=== PATIENT | male | born 1970 | race African-American/Black ===

== ENCOUNTER 2017-11-25 09:38 | Emergency (ER) | payer MEDICAID ==
[~2017-11-25] VITALS: Ht 175.3 cm; Wt 81.8 kg
[2017-11-25] MEDS ORDERED: CLINDAMYCIN HCL 150 MG CAPSULE PO ONE (10:45)
[2017-11-25] MEDS ORDERED: OxyCODONE HCL/ACETAMINOPHEN 5-325 MG TABLET PO ONE (11:00)
[2017-11-25 11:30] VITALS: BP 136/84
== END 2017-11-25 11:45 | disposition home or self-care (01) ==
LOC: EMS 09:40
DX: K08.89 Other specified disorders of teeth and supporting structures (principal); R22.0 Localized swelling, mass and lump, head; F17.210 Nicotine dependence, cigarettes, uncomplicated
CPT/HCPCS: 99283

== ENCOUNTER 2020-10-31 19:46 | Emergency (ER) | payer MEDICAID ==
[~2020-10-31] VITALS: Ht 177.8 cm; Wt 81.8 kg
[2020-10-31] MEDS ORDERED: KETOROLAC TROMETHAMINE 30 MG/ML VIAL IVP ONE (21:45)
[2020-10-31 21:50] LABS: BASOPHILS % (AUTO) 0.2 % (0.0-2.0); EOSINOPHILS % (AUTO) 0.3 % (1.0-6.0); HEMATOCRIT 39.5 % (41-53); LYMPHOCYTES # (AUTO) 1.4 K/uL (1.0-4.8); LYMPHOCYTES % (AUTO) 10.6 % (22.0-44.0); MEAN CORPUSCULAR HGB CONC 32.9 G/dL (31.0-37.0); MEAN CORPUSCULAR VOLUME 76 fL (80-100); MONOCYTES # (AUTO) 0.9 K/uL (0.1-1.0); MONOCYTES % (AUTO) 6.7 % (2.0-9.0); NEUTROPHILS # (AUTO) 11.2 K/uL (1.8-7.7); NEUTROPHILS % (AUTO) 82.2 % (40.0-70.0); PLATELET COUNT (AUTO) 272 K/uL (150-450); RED BLOOD CELL COUNT(AUTO) 5.19 MIL/uL (4.50-5.90); RED CELL DISTRIBUTION WIDTH 14.2 % (11.5-14.5)
[2020-10-31 21:53] LABS: ANION GAP 10 mmol/L (8-16); CALCIUM, TOTAL 8.9 mg/dL (8.8-10.5); CARBON DIOXIDE 31 mmol/L (22-29); CHLORIDE 100 mmol/L (98-107); CREATININE 1.01 mg/dL (0.60-1.30); GLOMERULAR FILTR. RATE CALC > 60 mL/min (>60); GLUCOSE,RANDOM 98 mg/dL (70-110); POTASSIUM 3.9 mmol/L (3.5-5.1); SODIUM SERUM 141 mmol/L (136-145); UREA NITROGEN, BLOOD 8 mg/dL (7-18)
[2020-10-31 21:58] LABS: ALANINE AMINOTRANSFERASE 16 U/L (12-78); ALBUMIN 3.8 g/dL (3.4-5.0); ALKALINE PHOSPHATASE 96 U/L (46-116); ASPARTATE AMINOTRANSFERASE 15 U/L (15-37); BILIRUBIN,TOTAL 0.4 mg/dL (0.1-1.0)
[2020-10-31] MEDS ORDERED: AMPICILLIN SODIUM/SULBACTAM NA 1.5 GM in SODIUM CHLORIDE 0.9% 50 ML IV ONE (22:00)
[2020-10-31 22:06] LABS: LACTIC ACID 1.4 mmol/L (0.4-2.0)
[2020-10-31] MEDS ORDERED: SODIUM CHLORIDE 0.9% 100 ML ONE (22:27)
[2020-10-31] MEDS ORDERED: IOHEXOL 350 MG/ML 100 ML VIAL ONE (22:28)
[2020-11-01 00:49] LABS: COVID AG,FIA SOURCE NASOPHARYNGEAL
[2020-11-01] MEDS ORDERED: SODIUM CHLORIDE 0.9% 1,000 ML IV ONE (04:15)
[2020-11-01] MEDS ORDERED: AMPICILLIN SODIUM/SULBACTAM NA 3 GM in SODIUM CHLORIDE 0.9% 100 ML IV ONE (04:15)
[2020-11-01 08:19] VITALS: BP 141/89
[2020-11-01] MEDS ORDERED: AMPICILLIN SODIUM/SULBACTAM NA 1.5 GM in SODIUM CHLORIDE 0.9% 50 ML IV ONE (11:00)
== END 2020-11-01 08:35 | disposition short-term general hospital (02) ==
LOC: EMS 19:48
DX: L03.211 Cellulitis of face (principal); F17.210 Nicotine dependence, cigarettes, uncomplicated; F12.90 Cannabis use, unspecified, uncomplicated; M27.2 Inflammatory conditions of jaws; Z20.822 Contact with and (suspected) exposure to COVID-19
CPT/HCPCS: 36415; 70487; 80053; 83605; 85025; 87426; 96365; 96366; 96375; 99285; A9575; J0295 ×3; J1885; J7030; J7050 ×4